=== PATIENT | male | born 1960 | race Caucasian/White ===

== ENCOUNTER 2017-11-14 14:48 | Emergency (ER) | payer MEDICAID, OTHER ==
[2017-11-14 16:11] LABS: #Basophils 0.1 thou/uL (0.0-0.2); #Eosinphils 0.1 thou/uL (0.0-0.7); #Lymphocytes 1.9 thou/uL (1.20-3.40); #Monocytes 1.1 thou/uL (0.11-0.59); %Basophils 0.9 % (0.0-1.0); %Eosinophils 1.3 % (0.0-10.0); %Lymphocytes 18.2 % (21.0-51.0); %Monocytes 10.6 % (0.0-10.0); Hemoglobin 14.3 g/dL (14.0-18.0); Mean Corpuscular HGB CONC 32.2 g/dL (32.0-36.0); Mean Corpuscular Hemoglobin 30.9 pg (27.0-31.0); Mean Corpuscular Volume 95.8 fl (80.0-94.0); Mean Platelet Volume 6.1 fL (7.4-10.4); Platelet Count 301 thou/uL (130-400); RBC Distribution Width 12.3 % (11.5-14.5); Red Blood Cell (RBC) Count 4.63 mill/uL (4.70-6.10); White Blood Cell (WBC) Count 10.2 thou/uL (4.8-10.8)
[2017-11-14 16:20] LABS: ALT (SGPT) 18 U/L (8-55); AST (SGOT) 16 U/L (5-34); Alkaline Phosphatase 79 U/L (40-150); Anion Gap 12 mmol/L (10-20); BUN (Urea Nitrogen) 12 mg/dL (8.4-25.7); Bilirubin, Total 0.5 mg/dL (0.2-1.2); Calc. Creatinine Clearance 0 mL/min (70-130); Calcium 9.6 mg/dL (7.8-10.44); Carbon Dioxide 27 mmol/L (22-29); Chloride 102 mmol/L (98-107); Estimated GFR-MDRD 71; Glucose 101 mg/dL (70-105); Potassium 4.4 mmol/L (3.5-5.1); Sodium 137 mmol/L (136-145)
--- NOTE | 2017-11-14 16:41 | RAD ---
RIGHT HUMERUS TWO VIEWS: History: Sudden onset of redness and swelling. Comparison: None. FINDINGS: There is a fracture of the right humeral neck with anterior displacement and mild impaction. There is full injury of the distal clavicle. Soft tissue edema. There appears to be osteopenia at the radial neck. IMPRESSION: Angulated fracture of the right humeral neck without definite extension into the articular surface. POS: [facility]
--- NOTE | 2017-11-14 16:54 | RAD ---
RIGHT ELBOW TWO VIEWS: History: Pain, redness. FINDINGS: There is abnormal lucency within the olecranon suggesting a fracture. Moderate to large joint effusio n. On the lateral radiograph, abnormal lucency at the radial neck cortex anteriorly. Exam is limited with only two views. IMPRESSION: 1. Findings concerning for a nondisplaced fracture of the olecranon at the olecranon process. 2. Abnormal lucency of the cortex seen on the lateral radiograph suggesting a radial neck fracture. 3. Large joint effusion. POS: [facility]
--- NOTE | 2017-11-14 17:00 | RAD ---
TWO VIEWS RIGHT FOREARM: History: Right forearm swelling and pain. FINDINGS: AP and lateral views were obtained and demonstrate an area of radiolucency involving the proximal por tion of the right ulna extending into the articulating surface at the humeral ulnar articulation. Thi s is compatible with an acute fracture. Degenerative changes seen in the radial carpal joint. IMPRESSION: Proximal intraarticular right ulnar fracture. POS: [facility]
== END 2017-11-14 18:06 | disposition home or self-care (01) ==
LOC: ERS 14:48
DX: S52.034A Nondisplaced fracture of olecranon process with intraarticular extension of right ulna, initial encounter for closed fracture (principal); Z87.891 Personal history of nicotine dependence; W19.XXXA Unspecified fall, initial encounter
CPT/HCPCS: 24675; 36415; 80053; 85025

== ENCOUNTER 2021-03-26 12:33 | Emergency (ER) | payer MEDICAID, OTHER ==
[2021-03-26] MEDS ORDERED: traMADol HCl 50 MG TAB ONE (13:32)
[2021-03-26] MEDS ORDERED: Ketorolac Tromethamine 30 MG/ML VIAL ONE (13:59)
== END 2021-03-26 14:47 | disposition home or self-care (01) ==
LOC: ERS 12:33
DX: S90.511A Abrasion, right ankle, initial encounter (principal); X58.XXXA Exposure to other specified factors, initial encounter
CPT/HCPCS: 96372; J1885

== ENCOUNTER 2022-05-22 12:25 | Inpatient (IN) | payer OTHER ==
[2022-05-22] MEDS ORDERED: Fosphenytoin Sodium 500 mg/10 ml Vial ONE ×2 (13:27→13:32)
[2022-05-22 13:41] LABS: Hemoglobin 17.3 g/dL (14.0-18.0); Mean Corpuscular HGB CONC 32.2 g/dL (32.0-36.0); Mean Corpuscular Hemoglobin 30.4 pg (27.0-31.0); Mean Corpuscular Volume 94.5 fL (78.0-98.0); Mean Platelet Volume 7.6 fL (7.4-10.4); Platelet Count 294 thou/uL (130-400); RBC Distribution Width 12.5 % (11.5-14.5); Red Blood Cell (RBC) Count 5.68 mill/uL (4.70-6.10); White Blood Cell (WBC) Count 22.3 thou/uL (4.8-10.8)
[2022-05-22 13:44] LABS: Bacteria/HPF None Seen HPF (None Seen); Bilirubin Negative (Negative); Blood, Urine 2+ (Negative); Clarity Clear (Clear); Glucose, Urine (Dipstick) 70 mg/dL (Negative); Ketone, Urine 40 mg/dL (Negative); Leukocyte Negative Leu/uL (Negative); Nitrite Negative (Negative); Protein, Urine (Dipstick) 300 mg/dL (Neg-Trace); RBC/HPF 0-3 HPF (0-3); Specific Gravity, Urine 1.021 (1.002-1.036); Squamous Epithelial 0-3 HPF (0-3); Urobilinogen Normal mg/dL (Less than 2); WBC/HPF 0-3 HPF (0-3); pH, Urine 6.5 (5.0-9.0)
[2022-05-22] MEDS ORDERED: Vancomycin 1 GM/200 ML BAG ONE (13:46)
[2022-05-22 14:01] LABS: ALT (SGPT) 23 U/L (8-55); AST (SGOT) 36 U/L (5-34); Albumin 4.2 g/dL (3.4-4.8); Alkaline Phosphatase 88 U/L (40-110); Anion Gap 22 mmol/L (10-20); BUN (Urea Nitrogen) 24 mg/dL (8.4-25.7); Bilirubin, Total 0.6 mg/dL (0.2-1.2); Calc. Creatinine Clearance 0 mL/min (70-130); Carbon Dioxide 18 mmol/L (23-31); Chloride 101 mmol/L (98-107); Estimated GFR 70; Globulin 3.3 g/dL (2.4-3.5); Glucose 149 mg/dL (80-115); Protein, Total 7.5 g/dL (5.8-8.1); Sodium 138 mmol/L (136-145)
[2022-05-22 14:05] LABS: Band 15 % (5-11); Lymphocytes 4 % (21-51); MDiff Complete? YES; Monocytes 11 % (0-10); Neutrophil 70 % (42-75); Platelet Morphology Comment Appears Adequate; RBC Morphology Normal
[2022-05-22 14:20] LABS: Potassium 2.9 mmol/L (3.5-5.1)
[2022-05-22] MEDS ORDERED: EPINEPHrine 1 MG/10 ML Abboject SYRINGE ONE (14:22)
[2022-05-22] MEDS ORDERED: Ketamine 50 MG/ML (10ML VIAL) ONE (14:36)
[2022-05-22] MEDS ORDERED: Rocuronium Bromide 10 MG/ML (10ML VIAL) ONE (14:40)
[2022-05-22 15:11] LABS: CKMB 20.8 ng/mL (0-6.6)
[2022-05-22] MEDS ORDERED: Fentanyl CADD 100 ML IV SCH (15:15)
[2022-05-22 15:23] LABS: Actual Bicarbonate (HCO3a) 14.8 mEq/L (22-28); Analyzer IN Cardio ER; CO2 Tension 30.5 mmHg (35.0-45.0); Calcium, Ionized (arterial) 1.06 mmol/L (1.12-1.30); Carboxyhemoglobin (COHb) 0.3 gm% (0.0-3.0); Hemoglobin (Hb) 15.9 g/dL (14.0-18.0); Potassium - ABG Lab 3.19 mmol/L (3.70-5.30); pH, Arterial 7.31 (7.35-7.45)
[2022-05-22 15:30] LABS: ALV-art Gradient 592.875 mmHg (0-20); Puncture Site LRA
[2022-05-22 15:38] LABS: SARS-CoV-2 NAA Rapid Test Not Detected (NotDetected)
[2022-05-22] MEDS ORDERED: Lorazepam 2 MG/ML VIAL SLOW IVP PRN (15:56)
[2022-05-22] MEDS ORDERED: Ventilator Sedation Protocol 1 EACH FS ONE (15:59)
[2022-05-22] MEDS ORDERED: levETIRAcetam 500 MG/5 ML VIAL SLOW IVP SCH (16:30)
[2022-05-22 16:41] LABS: Amphetamine Not Detected (NotDetected); Barbiturates Screen Detected (NotDetected); Benzodiazepine Screen Not Detected (NotDetected); Cocaine Metabolite Screen Not Detected (NotDetected); Methadone Not Detected (NotDetected); Methamphetamine Not Detected (NotDetected); Opiate Screen Not Detected (NotDetected); Oxycodone Screen Not Detected (NotDetected); Phencyclidine (PCP) Not Detected (NotDetected); THC/Cannabinoid Screen Not Detected (NotDetected); Tricyclic Screen Not Detected (NotDetected)
[2022-05-22 16:54] LABS: Legionella Urinary Ag Negative (Negative); Strep pneumo Urine Ag NEGATIVE (NEGATIVE)
[2022-05-22] MEDS ORDERED: Sodium Chloride 0.9% 500 ML IV SCH (17:00)
[2022-05-22 17:18] LABS: Lactic Acid 5.4 mmol/L (0.5-2.2)
[2022-05-22 17:32] LABS: Troponin I 6.208 ng/mL (< 0.028)
[2022-05-22 17:34] LABS: Acetaminophen Less than 10.0 mcg/mL (10.0-30.0); Alcohol Less than 10 mg/dL (Less than 10); CK (CPK) 546 U/L (30-200); Magnesium 1.6 mg/dL (1.6-2.6); Salicylate Less than 8.0 mg/dL (15.0-30.0)
[2022-05-22] MEDS: Potassium Chloride 20 MEQ in Premix Bag 1 BAG IVPB SCH ×2 (18:48→18:56)
[2022-05-22] MEDS: D5 0.9% NS w/ 20 mEq KCl 1,000 ML IV SCH (19:17)
[2022-05-22] MEDS: Fosphenytoin Sodium 100 MG in Sodium Chloride 0.9% 50 ML IVPB SCH (19:17)
[2022-05-22] MEDS ORDERED: Vancomycin HCl 500 MG in Sodium Chloride 0.9% 100 ML IVPB SCH (19:30)
[2022-05-22] MEDS ORDERED: Electrolyte Replacement Protocol 1 EACH FS ONE (19:33)
[2022-05-22 19:51] LABS: Lactic Acid 7.5 mmol/L (0.5-2.2); Troponin I 8.668 ng/mL (< 0.028)
[2022-05-22 20:09] LABS: Anion Gap 20 mmol/L (10-20); BUN (Urea Nitrogen) 21 mg/dL (8.4-25.7); Calc. Creatinine Clearance 50 mL/min (70-130); Calcium 7.3 mg/dL (7.8-10.44); Carbon Dioxide 14 mmol/L (23-31); Chloride 107 mmol/L (98-107); Estimated GFR 65; Glucose 283 mg/dL (80-115); Potassium 4.2 mmol/L (3.5-5.1); Sodium 137 mmol/L (136-145)
[2022-05-22] MEDS ORDERED: Fosphenytoin Sodium 150 MG in Sodium Chloride 0.9% 50 ML IVPB SCH (21:00)
[2022-05-22] MEDS: metroNIDAZOLE 500 MG in Premix Bag 1 BAG IVPB SCH (22:48)
[2022-05-23] MEDS: Fosphenytoin Sodium 100 MG in Sodium Chloride 0.9% 50 ML IVPB SCH ×4 (01:58→20:56)
[2022-05-23 04:46] LABS: Hemoglobin A1c 5.2 % (4.0-6.0)
[2022-05-23] MEDS: D5 0.9% NS w/ 20 mEq KCl 1,000 ML IV SCH (05:49)
[2022-05-23 07:41] LABS: Actual Bicarbonate (HCO3a) 17.6 mEq/L (22-28); Calcium, Ionized (arterial) 1.08 mmol/L (1.12-1.30); Carboxyhemoglobin (COHb) 0.3 gm% (0.0-3.0); Hemoglobin (Hb) 16.6 g/dL (14.0-18.0); O2 Tension (PaO2), arterial 146.6 mmHg (> 80.0); Potassium - ABG Lab 4.24 mmol/L (3.70-5.30); pH, Arterial 7.46 (7.35-7.45)
[2022-05-23 07:47] LABS: CO2 Tension 25.1 mmHg (35.0-45.0); Puncture Site RRA
[2022-05-23 07:48] LABS: ALV-art Gradient 178.525 mmHg (0-20)
[2022-05-23] MEDS ORDERED: Dextrose 5% in Water 1,000 ML IV PRN (08:04)
[2022-05-23] MEDS ORDERED: Dextrose 50% Abboject 50 ML SYRINGE SLOW IVP PRN (08:04)
[2022-05-23 08:36] LABS: Anion Gap 19 mmol/L (10-20); BUN (Urea Nitrogen) 18 mg/dL (8.4-25.7); Calc. Creatinine Clearance 41 mL/min (70-130); Calcium 7.5 mg/dL (7.8-10.44); Carbon Dioxide 17 mmol/L (23-31); Chloride 110 mmol/L (98-107); Estimated GFR 50; Glucose 263 mg/dL (80-115); Potassium 4.7 mmol/L (3.5-5.1); Sodium 141 mmol/L (136-145)
[2022-05-23] MEDS: Pantoprazole 40 MG VIAL IVP SCH (09:58)
[2022-05-23] MEDS: levETIRAcetam 500 MG/5 ML VIAL SLOW IVP SCH ×2 (09:59→20:56)
[2022-05-23] MEDS: Aspirin Chewable 81 MG TAB PO SCH ×2 (09:59→10:04)
[2022-05-23] MEDS: metroNIDAZOLE 500 MG in Premix Bag 1 BAG IVPB SCH ×2 (10:00→20:56)
[2022-05-23] MEDS: Lactated Ringer's 1,000 ML IV SCH ×2 (10:02→20:56)
[2022-05-23] MEDS ORDERED: Aspirin Chewable 81 MG TAB PO SCH (11:15)
[2022-05-23] MEDS: Insulin Regular 300 UNITS/3 ML VIAL SC PRN (17:56)
[2022-05-23] MEDS: VANCOMYCIN 1.25 GM/250 ML BAG 1.25 GM in Premix Bag 1 BAG IVPB SCH (18:35)
[2022-05-24] MEDS: Fosphenytoin Sodium 100 MG in Sodium Chloride 0.9% 50 ML IVPB SCH ×3 (00:37→12:50)
[2022-05-24 05:15] LABS: Band 19 % (5-11); Hemoglobin 15.7 g/dL (14.0-18.0); Lymphocytes 3 % (21-51); MDiff Complete? YES; Mean Corpuscular HGB CONC 32.8 g/dL (32.0-36.0); Mean Corpuscular Hemoglobin 31.1 pg (27.0-31.0); Mean Corpuscular Volume 94.6 fL (78.0-98.0); Mean Platelet Volume 8.5 fL (7.4-10.4); Monocytes 14 % (0-10); Neutrophil 63 % (42-75); Platelet Count 101 thou/uL (130-400); Platelet Morphology Comment Appears Decreased; RBC Distribution Width 12.6 % (11.5-14.5); RBC Morphology Normal; Reactive Lymphocytes 1 % (0-10); Red Blood Cell (RBC) Count 5.07 mill/uL (4.70-6.10); White Blood Cell (WBC) Count 19.2 thou/uL (4.8-10.8)
[2022-05-24 05:16] LABS: Anion Gap 16 mmol/L (10-20); BUN (Urea Nitrogen) 14 mg/dL (8.4-25.7); CK (CPK) 3469 U/L (30-200); Calc. Creatinine Clearance 47 mL/min (70-130); Carbon Dioxide 21 mmol/L (23-31); Chloride 105 mmol/L (98-107); Estimated GFR 57; Glucose 154 mg/dL (80-115); Potassium 3.8 mmol/L (3.5-5.1); Sodium 138 mmol/L (136-145)
[2022-05-24] MEDS: Insulin Regular 300 UNITS/3 ML VIAL SC PRN ×4 (06:16→21:23)
[2022-05-24 07:46] LABS: Actual Bicarbonate (HCO3a) 19.7 mEq/L (22-28); Base Excess (BEa) -0.5 mEq/L (-2.0 to +3.0); Calcium, Ionized (arterial) 1.07 mmol/L (1.12-1.30); Carboxyhemoglobin (COHb) 0.6 gm% (0.0-3.0); Hemoglobin (Hb) 15.8 g/dL (14.0-18.0); O2 Tension (PaO2), arterial 87.8 mmHg (> 80.0); Potassium - ABG Lab 3.59 mmol/L (3.70-5.30)
[2022-05-24 07:58] LABS: ALV-art Gradient 168.275 mmHg (0-20); CO2 Tension 23.3 mmHg (35.0-45.0); Puncture Site LRA; pH, Arterial 7.55 (7.35-7.45)
[2022-05-24] MEDS ORDERED: Aspirin Chewable 81 MG TAB PO SCH ×2 (09:00→10:45)
[2022-05-24] MEDS: Acetaminophen 650 MG/20.3 ML UDCUP PER TUBE PRN ×2 (09:43→15:54)
[2022-05-24] MEDS: Pantoprazole 40 MG VIAL IVP SCH (09:44)
[2022-05-24] MEDS: metroNIDAZOLE 500 MG in Premix Bag 1 BAG IVPB SCH ×2 (09:45→20:41)
[2022-05-24] MEDS: levETIRAcetam 500 MG/5 ML VIAL SLOW IVP SCH ×2 (09:45→20:40)
[2022-05-24] MEDS: Lactated Ringer's 1,000 ML IV SCH (10:01)
[2022-05-24] MEDS: Cefepime 1 GM in Sodium Chloride 0.9% 100 ML IVPB SCH ×2 (12:04→23:56)
[2022-05-24 17:33] LABS: Vancomycin, Trough 7.9 ug/mL
[2022-05-24] MEDS: VANCOMYCIN 1.25 GM/250 ML BAG 1.25 GM in Premix Bag 1 BAG IVPB SCH (18:51)
[2022-05-24] MEDS: Vancomycin HCl 750 MG in Sodium Chloride 0.9% 250 ML 250 ML IVPB SCH (20:00)
[2022-05-24] MEDS: Lisinopril 5 MG TAB PO SCH (20:40)
[2022-05-24] MEDS: Heparin 5,000 UNITS/ML VIAL SC SCH (20:40)
[2022-05-25] MEDS: Lactated Ringer's 1,000 ML IV SCH
[2022-05-25] MEDS: Acetaminophen 650 MG/20.3 ML UDCUP PER TUBE PRN ×2 (00:07→20:28)
[2022-05-25] MEDS: Fosphenytoin Sodium 200 MG in Sodium Chloride 0.9% 50 ML IVPB SCH ×2 (01:02→13:11)
[2022-05-25] MEDS: Vancomycin HCl 750 MG in Sodium Chloride 0.9% 250 ML 250 ML IVPB SCH ×2 (06:43→18:30)
[2022-05-25 07:53] LABS: Actual Bicarbonate (HCO3a) 19.2 mEq/L (22-28); Calcium, Ionized (arterial) 1.08 mmol/L (1.12-1.30); Carboxyhemoglobin (COHb) 0.2 gm% (0.0-3.0); Hemoglobin (Hb) 14.2 g/dL (14.0-18.0); O2 Tension (PaO2), arterial 92.5 mmHg (> 80.0); Potassium - ABG Lab 3.41 mmol/L (3.70-5.30); pH, Arterial 7.51 (7.35-7.45)
[2022-05-25 08:04] LABS: CO2 Tension 24.6 mmHg (35.0-45.0); Puncture Site RB
[2022-05-25] MEDS ORDERED: Aspirin Chewable 81 MG TAB PO SCH (09:00)
[2022-05-25 09:21] LABS: ALT (SGPT) 74 U/L (8-55); AST (SGOT) 243 U/L (5-34); Albumin 2.4 g/dL (3.4-4.8); Alkaline Phosphatase 39 U/L (40-110); Anion Gap 14 mmol/L (10-20); BUN (Urea Nitrogen) 20 mg/dL (8.4-25.7); Bilirubin, Total 0.4 mg/dL (0.2-1.2); Calc. Creatinine Clearance 43 mL/min (70-130); Calcium 7.5 mg/dL (7.8-10.44); Carbon Dioxide 19 mmol/L (23-31); Chloride 109 mmol/L (98-107); Estimated GFR 50; Globulin 2.4 g/dL (2.4-3.5); Glucose 174 mg/dL (80-115); Magnesium 1.5 mg/dL (1.6-2.6); Potassium 3.6 mmol/L (3.5-5.1); Protein, Total 4.8 g/dL (5.8-8.1); Sodium 138 mmol/L (136-145)
[2022-05-25] MEDS: Carvedilol 3.125 MG TAB PO SCH ×2 (09:36→17:29)
[2022-05-25] MEDS: Lisinopril 5 MG TAB PO SCH ×2 (09:37→20:26)
[2022-05-25] MEDS: levETIRAcetam 500 MG/5 ML VIAL SLOW IVP SCH ×2 (09:37→20:25)
[2022-05-25] MEDS: Pantoprazole 40 MG VIAL IVP SCH (09:37)
[2022-05-25] MEDS: Heparin 5,000 UNITS/ML VIAL SC SCH ×2 (09:43→20:25)
[2022-05-25] MEDS: metroNIDAZOLE 500 MG in Premix Bag 1 BAG IVPB SCH ×2 (09:50→20:28)
[2022-05-25 09:52] LABS: Band 17 % (5-11); Hemoglobin 13.7 g/dL (14.0-18.0); Lymphocytes 5 % (21-51); MDiff Complete? YES; Mean Corpuscular HGB CONC 32.5 g/dL (32.0-36.0); Mean Corpuscular Hemoglobin 30.8 pg (27.0-31.0); Mean Corpuscular Volume 94.9 fL (78.0-98.0); Mean Platelet Volume 9.2 fL (7.4-10.4); Monocytes 2 % (0-10); Neutrophil 76 % (42-75); Platelet Count 89 thou/uL (130-400); Platelet Morphology Comment Appears Decreased; RBC Distribution Width 12.3 % (11.5-14.5); RBC Morphology Normal; Red Blood Cell (RBC) Count 4.44 mill/uL (4.70-6.10); White Blood Cell (WBC) Count 17.3 thou/uL (4.8-10.8)
[2022-05-25] MEDS: Insulin Regular 300 UNITS/3 ML VIAL SC PRN ×3 (10:45→21:28)
[2022-05-25] MEDS: Cefepime 1 GM in Sodium Chloride 0.9% 100 ML IVPB SCH ×2 (11:37→23:23)
[2022-05-25] MEDS ORDERED: Electrolyte Replacement Protocol 1 EACH FS SCH (11:45)
[2022-05-25] MEDS ORDERED: Electrolyte Replacement Protocol FS PRN (12:00)
[2022-05-25] MEDS ORDERED: Magnesium 2 GM/50 ML(in water) 2 GM in Premix Bag 1 BAG IVPB SCH (12:00)
[2022-05-26] MEDS: Fosphenytoin Sodium 200 MG in Sodium Chloride 0.9% 50 ML IVPB SCH ×2 (00:57→12:45)
[2022-05-26 04:06] LABS: Band 16 % (5-11); Hemoglobin 12.9 g/dL (14.0-18.0); Hypochromia SLIGHT = 6-15 cells (100X) (0-5/hpf); Lymphocytes 5 % (21-51); MDiff Complete? YES; Mean Corpuscular HGB CONC 32.9 g/dL (32.0-36.0); Mean Corpuscular Hemoglobin 31.4 pg (27.0-31.0); Mean Corpuscular Volume 95.5 fL (78.0-98.0); Mean Platelet Volume 10.1 fL (7.4-10.4); Monocytes 13 % (0-10); Neutrophil 66 % (42-75); Platelet Count 107 thou/uL (130-400); Platelet Morphology Comment Appears Decreased; RBC Distribution Width 12.4 % (11.5-14.5); Red Blood Cell (RBC) Count 4.09 mill/uL (4.70-6.10); White Blood Cell (WBC) Count 18.6 thou/uL (4.8-10.8)
[2022-05-26 04:11] LABS: ALT (SGPT) 78 U/L (8-55); AST (SGOT) 232 U/L (5-34); Albumin 2.2 g/dL (3.4-4.8); Alkaline Phosphatase 45 U/L (40-110); Anion Gap 13 mmol/L (10-20); BUN (Urea Nitrogen) 29 mg/dL (8.4-25.7); Bilirubin, Total 0.3 mg/dL (0.2-1.2); Calc. Creatinine Clearance 33 mL/min (70-130); Calcium 7.5 mg/dL (7.8-10.44); Carbon Dioxide 18 mmol/L (23-31); Chloride 109 mmol/L (98-107); Estimated GFR 37; Globulin 2.6 g/dL (2.4-3.5); Glucose 173 mg/dL (80-115); Magnesium 2.3 mg/dL (1.6-2.6); Potassium 3.4 mmol/L (3.5-5.1); Protein, Total 4.8 g/dL (5.8-8.1); Sodium 137 mmol/L (136-145)
[2022-05-26] MEDS: Insulin Regular 300 UNITS/3 ML VIAL SC PRN ×4 (04:26→22:12)
[2022-05-26 06:43] LABS: Vancomycin, Trough 22.2 ug/mL
[2022-05-26] MEDS ORDERED: VANCOMYCIN 1.25 GM/250 ML BAG 1.25 GM in Premix Bag 1 BAG IVPB SCH (08:00)
[2022-05-26] MEDS: metroNIDAZOLE 500 MG in Premix Bag 1 BAG IVPB SCH ×2 (08:23→21:49)
[2022-05-26] MEDS: Potassium Chloride 20 MEQ in Premix Bag 1 BAG IVPB SCH ×2 (08:23→10:37)
[2022-05-26] MEDS: Heparin 5,000 UNITS/ML VIAL SC SCH ×2 (08:24→21:53)
[2022-05-26] MEDS: Pantoprazole 40 MG VIAL IVP SCH (08:25)
[2022-05-26] MEDS: levETIRAcetam 500 MG/5 ML VIAL SLOW IVP SCH ×2 (08:25→21:49)
[2022-05-26] MEDS: Lisinopril 5 MG TAB PO SCH (08:25)
[2022-05-26] MEDS: Carvedilol 3.125 MG TAB PO SCH ×2 (08:25→16:34)
[2022-05-26] MEDS: Aspirin Chewable 81 MG TAB PO SCH (08:26)
[2022-05-26] MEDS: Cefepime 1 GM in Sodium Chloride 0.9% 100 ML IVPB SCH ×2 (10:37→23:22)
[2022-05-26 12:07] LABS: Actual Bicarbonate (HCO3v) 20 mEq/L (22-28); Base Excess -2.3 mEq/L (-2.0 to +3.0); Calcium, Ionized (venous) 1.02 mmol/L (1.16-1.32); Chloride (VBG) 108 mmol/L (98-106); Hemoglobin (Hb) 13.9 g/dL (13.1-17.2); Potassium (VBG) 4.05 mmol/L (3.70-5.30); Sodium 133.8 mmol/L (133-146); pH (venous) 7.48 (7.32-7.43)
[2022-05-27] MEDS: Fosphenytoin Sodium 200 MG in Sodium Chloride 0.9% 50 ML IVPB SCH ×2 (01:08→13:49)
[2022-05-27] MEDS: Acetaminophen 650 MG/20.3 ML UDCUP PER TUBE PRN ×2 (01:09→21:25)
[2022-05-27 04:05] LABS: ALT (SGPT) 89 U/L (8-55); AST (SGOT) 238 U/L (5-34); Albumin 2.3 g/dL (3.4-4.8); Alkaline Phosphatase 58 U/L (40-110); Anion Gap 14 mmol/L (10-20); BUN (Urea Nitrogen) 45 mg/dL (8.4-25.7); Bilirubin, Total 0.3 mg/dL (0.2-1.2); Calc. Creatinine Clearance 28 mL/min (70-130); Calcium 7.7 mg/dL (7.8-10.44); Carbon Dioxide 18 mmol/L (23-31); Chloride 109 mmol/L (98-107); Estimated GFR 28; Globulin 2.9 g/dL (2.4-3.5); Glucose 237 mg/dL (80-115); Magnesium 2.4 mg/dL (1.6-2.6); Potassium 4.2 mmol/L (3.5-5.1); Protein, Total 5.2 g/dL (5.8-8.1); Sodium 137 mmol/L (136-145)
[2022-05-27] MEDS: Insulin Regular 300 UNITS/3 ML VIAL SC PRN ×3 (04:13→22:15)
[2022-05-27 04:15] LABS: Band 8 % (5-11); Hemoglobin 13.7 g/dL (14.0-18.0); Lymphocytes 9 % (21-51); MDiff Complete? YES; Mean Corpuscular HGB CONC 32.8 g/dL (32.0-36.0); Mean Corpuscular Hemoglobin 31.1 pg (27.0-31.0); Mean Corpuscular Volume 94.9 fL (78.0-98.0); Mean Platelet Volume 9.5 fL (7.4-10.4); Monocytes 5 % (0-10); Neutrophil 78 % (42-75); Platelet Count 143 thou/uL (130-400); Platelet Morphology Comment Appears Adequate; RBC Distribution Width 12.5 % (11.5-14.5); RBC Morphology Normal; Red Blood Cell (RBC) Count 4.41 mill/uL (4.70-6.10); White Blood Cell (WBC) Count 17.4 thou/uL (4.8-10.8)
[2022-05-27] MEDS ORDERED: ADMIXTURE FEE IVPB SCH (07:30)
[2022-05-27] MEDS ORDERED: VANCOMYCIN IVPB SCH (07:30)
[2022-05-27 08:40] LABS: Vancomycin, Random 27.4 ug/mL (See Comment)
[2022-05-27] MEDS ORDERED: Carvedilol 3.125 MG TAB PO SCH (08:45)
[2022-05-27] MEDS: Heparin 5,000 UNITS/ML VIAL SC SCH ×2 (09:00→21:30)
[2022-05-27] MEDS: levETIRAcetam 500 MG/5 ML VIAL SLOW IVP SCH ×2 (09:00→21:27)
[2022-05-27] MEDS: metroNIDAZOLE 500 MG in Premix Bag 1 BAG IVPB SCH ×2 (09:00→16:03)
[2022-05-27] MEDS: Aspirin Chewable 81 MG TAB PO SCH (09:01)
[2022-05-27] MEDS: Pantoprazole 40 MG VIAL IVP SCH (09:02)
[2022-05-27] MEDS ORDERED: Midazolam HCl 2 mg/2 ml Vial ONE (12:11)
[2022-05-27] MEDS ORDERED: Midazolam HCl 2 mg/2 ml Vial SLOW IVP PRN (12:37)
[2022-05-27] MEDS: Carvedilol 3.125 MG TAB PO SCH ×2 (13:23→16:23)
[2022-05-27] MEDS ORDERED: Sodium Chloride 3% 50 ML IVPB SCH (13:30)
[2022-05-27] MEDS ORDERED: Cefepime 1 GM in Sodium Chloride 0.9% 100 ML IVPB SCH (23:00)
[2022-05-28] MEDS: Fosphenytoin Sodium 200 MG in Sodium Chloride 0.9% 50 ML IVPB SCH ×2 (01:26→15:21)
[2022-05-28 04:30] LABS: Hemoglobin 12.5 g/dL (14.0-18.0); Mean Corpuscular HGB CONC 31.9 g/dL (32.0-36.0); Mean Corpuscular Hemoglobin 30.4 pg (27.0-31.0); Mean Corpuscular Volume 95.4 fL (78.0-98.0); Mean Platelet Volume 10.2 fL (7.4-10.4); Platelet Count 157 thou/uL (130-400); RBC Distribution Width 12.7 % (11.5-14.5); Red Blood Cell (RBC) Count 4.12 mill/uL (4.70-6.10); White Blood Cell (WBC) Count 15.2 thou/uL (4.8-10.8)
[2022-05-28 04:35] LABS: Vancomycin, Random 21.9 ug/mL (See Comment)
[2022-05-28 04:36] LABS: ALT (SGPT) 91 U/L (8-55); AST (SGOT) 197 U/L (5-34); Albumin 2.3 g/dL (3.4-4.8); Alkaline Phosphatase 63 U/L (40-110); Anion Gap 16 mmol/L (10-20); BUN (Urea Nitrogen) 61 mg/dL (8.4-25.7); Bilirubin, Total 0.2 mg/dL (0.2-1.2); Calc. Creatinine Clearance 22 mL/min (70-130); Calcium 7.6 mg/dL (7.8-10.44); Carbon Dioxide 17 mmol/L (23-31); Chloride 109 mmol/L (98-107); Estimated GFR 21; Globulin 2.8 g/dL (2.4-3.5); Glucose 234 mg/dL (80-115); Magnesium 2.4 mg/dL (1.6-2.6); Potassium 4.9 mmol/L (3.5-5.1); Protein, Total 5.1 g/dL (5.8-8.1); Sodium 137 mmol/L (136-145)
[2022-05-28] MEDS: Insulin Regular 300 UNITS/3 ML VIAL SC PRN ×4 (04:40→23:12)
[2022-05-28 05:38] LABS: Band 9 % (5-11); Eosinophils 3 % (0-10); Lymphocytes 9 % (21-51); MDiff Complete? YES; Monocytes 11 % (0-10); Neutrophil 68 % (42-75)
[2022-05-28 06:58] LABS: Actual Bicarbonate (HCO3a) 17.3 mEq/L (22-28); Calcium, Ionized (arterial) 1.12 mmol/L (1.12-1.30); Carboxyhemoglobin (COHb) 0.3 gm% (0.0-3.0); Hemoglobin (Hb) 14.2 g/dL (14.0-18.0); O2 Tension (PaO2), arterial 104.9 mmHg (> 80.0); Potassium - ABG Lab 4.75 mmol/L (3.70-5.30); pH, Arterial 7.44 (7.35-7.45)
[2022-05-28 06:59] LABS: CO2 Tension 25.8 mmHg (35.0-45.0)
[2022-05-28 07:00] LABS: Puncture Site RRA
[2022-05-28] MEDS ORDERED: Furosemide 40 MG/4 ML VIAL SLOW IVP SCH (09:30)
[2022-05-28] MEDS ORDERED: Meropenem 1 GM in Sodium Chloride 0.9% 100 ML IVPB SCH ×3 (09:45→14:00)
[2022-05-28] MEDS: levETIRAcetam 500 MG/5 ML VIAL SLOW IVP SCH ×2 (09:49→22:04)
[2022-05-28] MEDS: Pantoprazole 40 MG VIAL IVP SCH (09:49)
[2022-05-28] MEDS: metroNIDAZOLE 500 MG in Premix Bag 1 BAG IVPB SCH ×2 (09:51)
[2022-05-28] MEDS: Carvedilol 3.125 MG TAB PO SCH ×2 (09:52→17:46)
[2022-05-28] MEDS: Heparin 5,000 UNITS/ML VIAL SC SCH ×2 (09:53→22:05)
[2022-05-28] MEDS: Aspirin Chewable 81 MG TAB PO SCH (09:53)
[2022-05-28] MEDS ORDERED: Fentanyl CADD 100 ML IV PRN (16:10)
[2022-05-28] MEDS: Meropenem 500 MG in Sodium Chloride 0.9% 100 ML IVPB SCH (18:06)
[2022-05-28] MEDS: Senokot S 8.6-50 MG TAB PO SCH (22:05)
[2022-05-29] MEDS: Fosphenytoin Sodium 200 MG in Sodium Chloride 0.9% 50 ML IVPB SCH ×2 (00:51→13:01)
[2022-05-29] MEDS: Insulin Regular 300 UNITS/3 ML VIAL SC PRN ×4 (04:32→22:55)
[2022-05-29] MEDS: Meropenem 500 MG in Sodium Chloride 0.9% 100 ML IVPB SCH ×2 (06:29→17:50)
[2022-05-29 06:59] LABS: #Eosinphils 0.2 thou/uL (0.0-0.7); #Lymphocytes 1.3 thou/uL (1.20-3.40); #Monocytes 1.3 thou/uL (0.11-0.59); #Neutrophils 12.5 thou/uL (1.40-6.50); %Basophils 0.1 % (0.0-1.0); %Eosinophils 1.5 % (0.0-10.0); %Lymphocytes 8.7 % (21.0-51.0); %Monocytes 8.3 % (0.0-10.0); %Neutrophils 81.5 % (42.0-75.0); Hemoglobin 13.3 g/dL (14.0-18.0); Mean Corpuscular HGB CONC 30.9 g/dL (32.0-36.0); Mean Corpuscular Volume 97.2 fL (78.0-98.0); Mean Platelet Volume 9.4 fL (7.4-10.4); Platelet Count 199 thou/uL (130-400); RBC Distribution Width 12.9 % (11.5-14.5); Red Blood Cell (RBC) Count 4.45 mill/uL (4.70-6.10); White Blood Cell (WBC) Count 15.3 thou/uL (4.8-10.8)
[2022-05-29 07:18] LABS: ALT (SGPT) 86 U/L (8-55); AST (SGOT) 203 U/L (5-34); Albumin 2.2 g/dL (3.4-4.8); Alkaline Phosphatase 65 U/L (40-110); Anion Gap 16 mmol/L (10-20); BUN (Urea Nitrogen) 84 mg/dL (8.4-25.7); Bilirubin, Total 0.2 mg/dL (0.2-1.2); Calc. Creatinine Clearance 18 mL/min (70-130); Calcium 7.5 mg/dL (7.8-10.44); Carbon Dioxide 16 mmol/L (23-31); Cardiac Risk 4.4 (Less than 4.5); Chloride 106 mmol/L (98-107); Cholesterol 97 mg/dl (< 200 Desired); Estimated GFR 15; Globulin 3.2 g/dL (2.4-3.5); Glucose 186 mg/dL (80-115); HDL Cholesterol 22 mg/dL (>60 Neg Risk); LDL Cholesterol, Calculated 47 mg/dL; Magnesium 2.4 mg/dL (1.6-2.6); Potassium 6.3 mmol/L (3.5-5.1); Protein, Total 5.4 g/dL (5.8-8.1); Sodium 132 mmol/L (136-145); Triglycerides 141 mg/dL (Less than 150)
[2022-05-29] MEDS: levETIRAcetam 500 MG/5 ML VIAL SLOW IVP SCH ×2 (09:28→21:16)
[2022-05-29] MEDS: Pantoprazole 40 MG VIAL IVP SCH (09:28)
[2022-05-29] MEDS: Polyethylene Glycol 3350 17 GM Packet PER TUBE SCH (09:28)
[2022-05-29] MEDS: Heparin 5,000 UNITS/ML VIAL SC SCH ×2 (09:29→21:16)
[2022-05-29] MEDS: Aspirin Chewable 81 MG TAB PO SCH (09:29)
[2022-05-29] MEDS: Senokot S 8.6-50 MG TAB PO SCH ×2 (09:29→21:16)
[2022-05-29] MEDS: Carvedilol 3.125 MG TAB PO SCH ×2 (09:29→16:34)
[2022-05-29] MEDS: Furosemide 40 MG/4 ML VIAL SLOW IVP SCH ×2 (09:30→21:16)
[2022-05-29] MEDS ORDERED: Midazolam HCl 2 mg/2 ml Vial SLOW IVP PRN (15:46)
[2022-05-29] MEDS ORDERED: Fentanyl BOLUS 250 ML IVPB PRN (16:00)
[2022-05-29] MEDS ORDERED: DISCONTINUE PREVIOUS NARCOTIC PAIN MEDICATIONS AND BENZODIAZEPINES FS SCH (16:00)
[2022-05-29] MEDS ORDERED: Morphine 4 MG/ML VIAL SLOW IVP PRN (16:00)
[2022-05-29] MEDS ORDERED: Propofol BOLUS 1,000 MG/100 ML VIAL IV PRN (16:00)
[2022-05-29] MEDS ORDERED: Propofol 1,000 MG/100 ML VIAL IV PRN (16:00)
[2022-05-29] MEDS ORDERED: Fentanyl CADD 100 ML IV SCH (16:00)
[2022-05-29] MEDS ORDERED: Insulin Glargine 30 UNITS/0.3 ML VIAL SC SCH (17:45)
[2022-05-30] MEDS ORDERED: Fentanyl CADD 100 ML ONE ×2 (01:13→21:45)
[2022-05-30] MEDS: Fosphenytoin Sodium 200 MG in Sodium Chloride 0.9% 50 ML IVPB SCH ×2 (01:26→14:36)
[2022-05-30 04:10] LABS: #Eosinphils 0.2 thou/uL (0.0-0.7); #Lymphocytes 1.1 thou/uL (1.20-3.40); #Monocytes 1.2 thou/uL (0.11-0.59); #Neutrophils 13.6 thou/uL (1.40-6.50); %Basophils 0.1 % (0.0-1.0); %Eosinophils 1.4 % (0.0-10.0); %Lymphocytes 6.8 % (21.0-51.0); %Monocytes 7.1 % (0.0-10.0); %Neutrophils 84.7 % (42.0-75.0); Hemoglobin 12.4 g/dL (14.0-18.0); Mean Corpuscular HGB CONC 33.1 g/dL (32.0-36.0); Mean Corpuscular Hemoglobin 31.4 pg (27.0-31.0); Mean Corpuscular Volume 94.9 fL (78.0-98.0); Mean Platelet Volume 8.5 fL (7.4-10.4); Platelet Count 344 thou/uL (130-400); RBC Distribution Width 12.8 % (11.5-14.5); Red Blood Cell (RBC) Count 3.94 mill/uL (4.70-6.10); White Blood Cell (WBC) Count 16.1 thou/uL (4.8-10.8)
[2022-05-30 04:34] LABS: ALT (SGPT) 82 U/L (8-55); AST (SGOT) 162 U/L (5-34); Albumin 2.2 g/dL (3.4-4.8); Alkaline Phosphatase 73 U/L (40-110); Anion Gap 18 mmol/L (10-20); BUN (Urea Nitrogen) 103 mg/dL (8.4-25.7); Bilirubin, Total 0.2 mg/dL (0.2-1.2); Calc. Creatinine Clearance 15 mL/min (70-130); Carbon Dioxide 17 mmol/L (23-31); Chloride 106 mmol/L (98-107); Estimated GFR 12; Globulin 3.5 g/dL (2.4-3.5); Glucose 248 mg/dL (80-115); Magnesium 2.4 mg/dL (1.6-2.6); Protein, Total 5.7 g/dL (5.8-8.1); Sodium 134 mmol/L (136-145)
[2022-05-30] MEDS ORDERED: Calcium Chloride 1 GM/10 ML Abboject SYRINGE IVP SCH ×6 (05:15→11:40)
[2022-05-30] MEDS ORDERED: Dextrose 50% Abboject 50 ML SYRINGE SLOW IVP SCH ×2 (05:15→07:45)
[2022-05-30] MEDS ORDERED: Insulin Regular 300 UNITS/3 ML VIAL IVP SCH ×3 (05:30→11:30)
[2022-05-30] MEDS: Meropenem 500 MG in Sodium Chloride 0.9% 100 ML IVPB SCH ×2 (06:07→18:49)
[2022-05-30 07:08] LABS: Potassium 6.5 mmol/L (3.5-5.1)
[2022-05-30] MEDS ORDERED: Heparin 10,000 UNITS/ 10 ML VIAL ONE (08:21)
[2022-05-30] MEDS: Furosemide 40 MG/4 ML VIAL SLOW IVP SCH (09:22)
[2022-05-30] MEDS: Polyethylene Glycol 3350 17 GM Packet PER TUBE SCH (09:22)
[2022-05-30] MEDS: Senokot S 8.6-50 MG TAB PO SCH ×2 (09:22→21:59)
[2022-05-30] MEDS: Pantoprazole 40 MG VIAL IVP SCH (09:22)
[2022-05-30] MEDS: levETIRAcetam 500 MG/5 ML VIAL SLOW IVP SCH ×2 (09:22→21:54)
[2022-05-30] MEDS: Heparin 5,000 UNITS/ML VIAL SC SCH ×2 (09:22→22:10)
[2022-05-30] MEDS: Aspirin Chewable 81 MG TAB PO SCH (09:23)
[2022-05-30] MEDS: Carvedilol 3.125 MG TAB PO SCH ×2 (09:23→18:49)
[2022-05-30 10:53] LABS: Potassium 6.4 mmol/L (3.5-5.1)
[2022-05-30] MEDS: Insulin Regular 300 UNITS/3 ML VIAL SC PRN ×2 (10:58→16:09)
[2022-05-30 13:33] LABS: Potassium 6.5 mmol/L (3.5-5.1)
[2022-05-30] MEDS ORDERED: LOKELMA 10 GM PACKET PO SCH (14:00)
[2022-05-30] MEDS: Sodium Bicarbonate 150 MEQ in Dextrose 5% in Water 1,000 ML IV SCH (14:27)
[2022-05-30 14:53] LABS: Actual Bicarbonate (HCO3a) 19.7 mEq/L (22-28); Base Excess (BEa) -4.3 mEq/L (-2.0 to +3.0); CO2 Tension 33.6 mmHg (35.0-45.0); Calcium, Ionized (arterial) 1.63 mmol/L (1.12-1.30); Carboxyhemoglobin (COHb) 0.4 gm% (0.0-3.0); Hemoglobin (Hb) 14.8 g/dL (14.0-18.0); O2 Tension (PaO2), arterial 103.4 mmHg (> 80.0); Potassium - ABG Lab 6.25 mmol/L (3.70-5.30); pH, Arterial 7.39 (7.35-7.45)
[2022-05-30] MEDS: Albumin 25% 25 GM/100 ML BOT IVPB SCH ×2 (16:12→22:24)
[2022-05-30 16:37] LABS: Vancomycin, Random 14.9 ug/mL (See Comment)
[2022-05-30 16:58] LABS: Albumin 2.1 g/dL (3.4-4.8); Anion Gap 15 mmol/L (10-20); BUN (Urea Nitrogen) 108 mg/dL (8.4-25.7); BUN/Creatinine Ratio 20.38; CK (CPK) 3797 U/L (30-200); Calc. Creatinine Clearance 15 mL/min (70-130); Calcium 11.1 mg/dL (7.8-10.44); Carbon Dioxide 19 mmol/L (23-31); Chloride 107 mmol/L (98-107); Estimated GFR 12; Glucose 189 mg/dL (80-115); Phosphorus 6.2 mg/dL (2.3-4.7); Potassium 6.4 mmol/L (3.5-5.1); Sodium 135 mmol/L (136-145)
[2022-05-30 18:58] LABS: HBSAB Concentration Less than 8.00 mIU/mL; HBSAg Index 0.26 S/CO (0-0.99); Hep B Surf AB Non-Reactive (NonReactive); Hep B Surf Ag Non-Reactive S/CO (NonReactive)
[2022-05-30 19:02] LABS: Hep C Index 13.21 S/CO (0-0.79)
[2022-05-30 20:09] LABS: Hep B Core Total Index 6.51 S/CO (0-0.79)
[2022-05-30 20:10] LABS: Hep C IgG Ab Reflex HepC Qnt (NonReactive)
[2022-05-30 21:07] LABS: Hep B Core Total Ab Reactive (NonReactive)
[2022-05-30] MEDS: Insulin Glargine 30 UNITS/0.3 ML VIAL SC SCH (22:00)
[2022-05-31] MEDS: Fosphenytoin Sodium 200 MG in Sodium Chloride 0.9% 50 ML IVPB SCH (01:33)
[2022-05-31] MEDS: Sodium Bicarbonate 150 MEQ in Dextrose 5% in Water 1,000 ML IV SCH (02:07)
[2022-05-31 02:50] LABS: Bacteria/HPF 3+ HPF (None Seen); Bilirubin Negative (Negative); Blood, Urine 3+ (Negative); Clarity Extra Turbid (Clear); Glucose, Urine (Dipstick) Normal (Negative); Ketone, Urine Negative (Negative); Leukocyte 250 Leu/uL (Negative); Nitrite Negative (Negative); Protein, Urine (Dipstick) 100 mg/dL (Neg-Trace); RBC/HPF 21-50 HPF (0-3); Specific Gravity, Urine 1.018 (1.002-1.036); Urobilinogen Normal mg/dL (Less than 2); WBC/HPF Greater than 50 HPF (0-3); Yeast-Budding 2+ HPF (None Seen); pH, Urine 5.5 (5.0-9.0)
[2022-05-31 02:59] LABS: Urine Culture Reflex No No
[2022-05-31 03:18] LABS: Creatinine, Urine 109.41 mg/dL (63-166)
[2022-05-31] MEDS: Albumin 25% 25 GM/100 ML BOT IVPB SCH ×3 (04:13→17:07)
[2022-05-31] MEDS: Insulin Regular 300 UNITS/3 ML VIAL SC PRN (05:07)
[2022-05-31 05:10] LABS: #Eosinphils 0.3 thou/uL (0.0-0.7); #Lymphocytes 1.3 thou/uL (1.20-3.40); #Monocytes 0.9 thou/uL (0.11-0.59); %Basophils 0.1 % (0.0-1.0); %Lymphocytes 9.3 % (21.0-51.0); %Monocytes 6.1 % (0.0-10.0); %Neutrophils 82.6 % (42.0-75.0); Hemoglobin 10.6 g/dL (14.0-18.0); Mean Corpuscular HGB CONC 32.2 g/dL (32.0-36.0); Mean Corpuscular Hemoglobin 30.5 pg (27.0-31.0); Mean Corpuscular Volume 94.6 fL (78.0-98.0); Platelet Count 361 thou/uL (130-400); RBC Distribution Width 12.6 % (11.5-14.5); Red Blood Cell (RBC) Count 3.48 mill/uL (4.70-6.10); White Blood Cell (WBC) Count 14.5 thou/uL (4.8-10.8)
[2022-05-31 05:38] LABS: ALT (SGPT) 64 U/L (8-55); AST (SGOT) 117 U/L (5-34); Albumin 2.3 g/dL (3.4-4.8); Alkaline Phosphatase 69 U/L (40-110); Anion Gap 17 mmol/L (10-20); BUN (Urea Nitrogen) 76 mg/dL (8.4-25.7); Bilirubin, Total 0.3 mg/dL (0.2-1.2); Calc. Creatinine Clearance 19 mL/min (70-130); Carbon Dioxide 26 mmol/L (23-31); Chloride 100 mmol/L (98-107); Estimated GFR 15; Globulin 2.7 g/dL (2.4-3.5); Glucose 165 mg/dL (80-115); Magnesium 2.1 mg/dL (1.6-2.6); Potassium 4.9 mmol/L (3.5-5.1); Sodium 138 mmol/L (136-145)
[2022-05-31] MEDS: Meropenem 500 MG in Sodium Chloride 0.9% 100 ML IVPB SCH ×2 (07:13→16:15)
[2022-05-31] MEDS ORDERED: Heparin 10,000 UNITS/ 10 ML VIAL ONE (08:30)
[2022-05-31] MEDS: Carvedilol 3.125 MG TAB PO SCH ×2 (09:21→16:14)
[2022-05-31] MEDS: Aspirin Chewable 81 MG TAB PO SCH (09:21)
[2022-05-31] MEDS: Senokot S 8.6-50 MG TAB PO SCH ×2 (09:22→22:02)
[2022-05-31] MEDS: Pantoprazole 40 MG VIAL IVP SCH (09:22)
[2022-05-31] MEDS: Polyethylene Glycol 3350 17 GM Packet PER TUBE SCH (09:22)
[2022-05-31] MEDS: Heparin 5,000 UNITS/ML VIAL SC SCH ×2 (09:22→22:04)
[2022-05-31] MEDS: levETIRAcetam 500 MG/5 ML VIAL SLOW IVP SCH ×2 (09:22→22:02)
[2022-05-31] MEDS: Insulin Glargine 30 UNITS/0.3 ML VIAL SC SCH (22:03)
[2022-06-01] MEDS: Albumin 25% 25 GM/100 ML BOT IVPB SCH ×3 (01:58→11:52)
[2022-06-01 04:26] LABS: #Eosinphils 0.2 thou/uL (0.0-0.7); #Lymphocytes 1.2 thou/uL (1.20-3.40); #Monocytes 0.9 thou/uL (0.11-0.59); #Neutrophils 9.2 thou/uL (1.40-6.50); %Eosinophils 1.4 % (0.0-10.0); %Lymphocytes 10.3 % (21.0-51.0); %Monocytes 7.5 % (0.0-10.0); %Neutrophils 80.7 % (42.0-75.0); Hemoglobin 8.9 g/dL (14.0-18.0); Mean Corpuscular HGB CONC 32.5 g/dL (32.0-36.0); Mean Corpuscular Hemoglobin 30.5 pg (27.0-31.0); Mean Platelet Volume 7.8 fL (7.4-10.4); Platelet Count 325 thou/uL (130-400); RBC Distribution Width 12.4 % (11.5-14.5); Red Blood Cell (RBC) Count 2.93 mill/uL (4.70-6.10); White Blood Cell (WBC) Count 11.4 thou/uL (4.8-10.8)
[2022-06-01] MEDS: Meropenem 500 MG in Sodium Chloride 0.9% 100 ML IVPB SCH (05:50)
[2022-06-01 07:51] LABS: Actual Bicarbonate (HCO3a) 28.2 mEq/L (22-28); Base Excess (BEa) 4.1 mEq/L (-2.0 to +3.0); CO2 Tension 40.2 mmHg (35.0-45.0); Calcium, Ionized (arterial) 1.05 mmol/L (1.12-1.30); Carboxyhemoglobin (COHb) 0.3 gm% (0.0-3.0); Hemoglobin (Hb) 10.3 g/dL (14.0-18.0); O2 Tension (PaO2), arterial 97.8 mmHg (> 80.0); pH, Arterial 7.46 (7.35-7.45)
[2022-06-01 08:08] LABS: Puncture Site LRA
[2022-06-01 08:44] LABS: Iron 18 ug/dL (65-175); Iron Binding Capacity, Total 94 mcg/dL (261-462)
[2022-06-01 09:03] LABS: Ferritin 490.94 ng/mL (22-322)
[2022-06-01 09:04] LABS: Vitamin D, 25 Hydroxy 10.2 ng/ml (> 30.0)
[2022-06-01] MEDS: levETIRAcetam 500 MG/5 ML VIAL SLOW IVP SCH ×2 (09:36→21:59)
[2022-06-01] MEDS: Heparin 5,000 UNITS/ML VIAL SC SCH ×2 (09:37→21:59)
[2022-06-01] MEDS: Pantoprazole 40 MG VIAL IVP SCH (09:37)
[2022-06-01] MEDS: Polyethylene Glycol 3350 17 GM Packet PER TUBE SCH (09:37)
[2022-06-01] MEDS: Aspirin 325 MG TAB PO SCH (09:38)
[2022-06-01] MEDS: Carvedilol 3.125 MG TAB PO SCH ×2 (09:38→16:44)
[2022-06-01] MEDS: Senokot S 8.6-50 MG TAB PO SCH ×2 (09:38→21:50)
[2022-06-01 09:48] LABS: Albumin 3.5 g/dL (3.4-4.8); Anion Gap 19 mmol/L (10-20); BUN (Urea Nitrogen) 64 mg/dL (8.4-25.7); BUN/Creatinine Ratio 14.81; Calc. Creatinine Clearance 18 mL/min (70-130); Calcium 8.7 mg/dL (7.8-10.44); Carbon Dioxide 25 mmol/L (23-31); Chloride 97 mmol/L (98-107); Estimated GFR 15; Glucose 134 mg/dL (80-115); Phosphorus 4.6 mg/dL (2.3-4.7); Potassium 4.2 mmol/L (3.5-5.1); Sodium 137 mmol/L (136-145)
[2022-06-01] MEDS ORDERED: Heparin 10,000 UNITS/ 10 ML VIAL ONE (09:54)
[2022-06-01] MEDS: Insulin Glargine 30 UNITS/0.3 ML VIAL SC SCH (21:59)
[2022-06-02 04:23] LABS: #Eosinphils 0.3 thou/uL (0.0-0.7); #Lymphocytes 1.3 thou/uL (1.20-3.40); #Neutrophils 11.8 thou/uL (1.40-6.50); %Basophils 0.1 % (0.0-1.0); %Eosinophils 1.9 % (0.0-10.0); %Lymphocytes 8.9 % (21.0-51.0); %Monocytes 6.8 % (0.0-10.0); %Neutrophils 82.3 % (42.0-75.0); Hemoglobin 9.8 g/dL (14.0-18.0); Mean Corpuscular HGB CONC 32.3 g/dL (32.0-36.0); Mean Corpuscular Hemoglobin 30.1 pg (27.0-31.0); Mean Corpuscular Volume 93.2 fL (78.0-98.0); Mean Platelet Volume 7.7 fL (7.4-10.4); Platelet Count 435 thou/uL (130-400); RBC Distribution Width 12.4 % (11.5-14.5); Red Blood Cell (RBC) Count 3.25 mill/uL (4.70-6.10); White Blood Cell (WBC) Count 14.3 thou/uL (4.8-10.8)
[2022-06-02 04:45] LABS: ALT (SGPT) 57 U/L (8-55); AST (SGOT) 105 U/L (5-34); Albumin 3.3 g/dL (3.4-4.8); Alkaline Phosphatase 92 U/L (40-110); Anion Gap 17 mmol/L (10-20); BUN (Urea Nitrogen) 52 mg/dL (8.4-25.7); Bilirubin, Total 0.4 mg/dL (0.2-1.2); CK (CPK) 3000 U/L (30-200); Calc. Creatinine Clearance 20 mL/min (70-130); Calcium 8.5 mg/dL (7.8-10.44); Carbon Dioxide 26 mmol/L (23-31); Chloride 97 mmol/L (98-107); Estimated GFR 17; Globulin 2.5 g/dL (2.4-3.5); Glucose 123 mg/dL (80-115); Phosphorus 3.8 mg/dL (2.3-4.7); Potassium 3.8 mmol/L (3.5-5.1); Protein, Total 5.8 g/dL (5.8-8.1); Sodium 136 mmol/L (136-145)
[2022-06-02] MEDS: Meropenem 500 MG in Sodium Chloride 0.9% 100 ML IVPB SCH (06:29)
[2022-06-02] MEDS: Polyethylene Glycol 3350 17 GM Packet PER TUBE SCH (08:18)
[2022-06-02] MEDS: Senokot S 8.6-50 MG TAB PO SCH (08:19)
[2022-06-02 09:38] LABS: Hep C PCR-Quant HCV Not Detected IU/mL (.)
[2022-06-02] MEDS: levETIRAcetam 500 MG/5 ML VIAL SLOW IVP SCH ×2 (09:53→22:43)
[2022-06-02] MEDS: Heparin 5,000 UNITS/ML VIAL SC SCH ×2 (09:53→22:43)
[2022-06-02] MEDS: Carvedilol 3.125 MG TAB PO SCH ×2 (09:54→17:22)
[2022-06-02] MEDS: Aspirin 325 MG TAB PO SCH (09:54)
[2022-06-02] MEDS: Pantoprazole 40 MG VIAL IVP SCH (09:54)
[2022-06-02] MEDS ORDERED: Heparin 10,000 UNITS/ 10 ML VIAL ONE (09:55)
[2022-06-02] MEDS ORDERED: Senokot S 8.6-50 MG TAB PO PRN (12:38)
[2022-06-02] MEDS ORDERED: Polyethylene Glycol 3350 17 GM Packet PER TUBE PRN (12:38)
[2022-06-02] MEDS: Insulin Glargine 30 UNITS/0.3 ML VIAL SC SCH (22:43)
[2022-06-03 04:41] LABS: #Eosinphils 0.4 thou/uL (0.0-0.7); #Monocytes 0.9 thou/uL (0.11-0.59); #Neutrophils 9.4 thou/uL (1.40-6.50); %Basophils 0.1 % (0.0-1.0); %Eosinophils 3.2 % (0.0-10.0); %Lymphocytes 8.5 % (21.0-51.0); %Monocytes 7.5 % (0.0-10.0); %Neutrophils 80.8 % (42.0-75.0); Hemoglobin 10.6 g/dL (14.0-18.0); Mean Corpuscular Hemoglobin 30.7 pg (27.0-31.0); Mean Platelet Volume 7.3 fL (7.4-10.4); Platelet Count 452 thou/uL (130-400); RBC Distribution Width 12.4 % (11.5-14.5); Red Blood Cell (RBC) Count 3.46 mill/uL (4.70-6.10); White Blood Cell (WBC) Count 11.6 thou/uL (4.8-10.8)
[2022-06-03 05:08] LABS: ALT (SGPT) 70 U/L (8-55); AST (SGOT) 104 U/L (5-34); Albumin 3.1 g/dL (3.4-4.8); Alkaline Phosphatase 95 U/L (40-110); Anion Gap 14 mmol/L (10-20); BUN (Urea Nitrogen) 47 mg/dL (8.4-25.7); BUN/Creatinine Ratio 13.62; Bilirubin, Total 0.3 mg/dL (0.2-1.2); CK (CPK) 2266 U/L (30-200); Calc. Creatinine Clearance 21 mL/min (70-130); Calcium 8.5 mg/dL (7.8-10.44); Carbon Dioxide 28 mmol/L (23-31); Chloride 98 mmol/L (98-107); Estimated GFR 19; Globulin 2.8 g/dL (2.4-3.5); Glucose 133 mg/dL (80-115); Potassium 3.7 mmol/L (3.5-5.1); Protein, Total 5.9 g/dL (5.8-8.1); Sodium 136 mmol/L (136-145)
[2022-06-03] MEDS: Meropenem 500 MG in Sodium Chloride 0.9% 100 ML IVPB SCH (05:55)
[2022-06-03 07:39] LABS: Actual Bicarbonate (HCO3a) 25.2 mEq/L (22-28); Base Excess (BEa) 2.6 mEq/L (-2.0 to +3.0); CO2 Tension 31.8 mmHg (35.0-45.0); Calcium, Ionized (arterial) 1.08 mmol/L (1.12-1.30); Carboxyhemoglobin (COHb) 0.3 gm% (0.0-3.0); Hemoglobin (Hb) 10.6 g/dL (14.0-18.0); O2 Tension (PaO2), arterial 122.8 mmHg (> 80.0); Potassium - ABG Lab 3.64 mmol/L (3.70-5.30); pH, Arterial 7.52 (7.35-7.45)
[2022-06-03 07:41] LABS: Puncture Site RRA
[2022-06-03] MEDS: Heparin 5,000 UNITS/ML VIAL SC SCH ×2 (08:36→22:32)
[2022-06-03] MEDS: Pantoprazole 40 MG VIAL IVP SCH (08:37)
[2022-06-03] MEDS: Aspirin 325 MG TAB PO SCH (08:37)
[2022-06-03] MEDS: levETIRAcetam 500 MG/5 ML VIAL SLOW IVP SCH ×2 (08:37→22:33)
[2022-06-03] MEDS: Carvedilol 25 MG TAB PO SCH ×2 (08:38→16:51)
[2022-06-03] MEDS ORDERED: Heparin 10,000 UNITS/ 10 ML VIAL ONE (08:48)
[2022-06-03 11:45] VITALS: BMI 23.4
[2022-06-03] MEDS: Insulin Regular 300 UNITS/3 ML VIAL SC PRN (17:00)
[2022-06-03] MEDS: Insulin Glargine 30 UNITS/0.3 ML VIAL SC SCH (22:31)
[2022-06-04 04:21] LABS: #Eosinphils 0.4 thou/uL (0.0-0.7); #Monocytes 1.1 thou/uL (0.11-0.59); #Neutrophils 9.1 thou/uL (1.40-6.50); %Basophils 0.2 % (0.0-1.0); %Eosinophils 3.4 % (0.0-10.0); %Lymphocytes 8.2 % (21.0-51.0); %Monocytes 9.6 % (0.0-10.0); %Neutrophils 78.6 % (42.0-75.0); Hemoglobin 9.9 g/dL (14.0-18.0); Mean Corpuscular HGB CONC 33.1 g/dL (32.0-36.0); Mean Corpuscular Hemoglobin 30.8 pg (27.0-31.0); Mean Corpuscular Volume 93.3 fL (78.0-98.0); Platelet Count 454 thou/uL (130-400); RBC Distribution Width 12.4 % (11.5-14.5); White Blood Cell (WBC) Count 11.6 thou/uL (4.8-10.8)
[2022-06-04 04:48] LABS: ALT (SGPT) 87 U/L (8-55); AST (SGOT) 101 U/L (5-34); Albumin 2.9 g/dL (3.4-4.8); Alkaline Phosphatase 102 U/L (40-110); Anion Gap 16 mmol/L (10-20); BUN (Urea Nitrogen) 42 mg/dL (8.4-25.7); BUN/Creatinine Ratio 13.95; Bilirubin, Total 0.3 mg/dL (0.2-1.2); CK (CPK) 2039 U/L (30-200); Calc. Creatinine Clearance 24 mL/min (70-130); Calcium 8.6 mg/dL (7.8-10.44); Carbon Dioxide 26 mmol/L (23-31); Chloride 99 mmol/L (98-107); Estimated GFR 23; Glucose 139 mg/dL (80-115); Phosphorus 3.8 mg/dL (2.3-4.7); Potassium 3.7 mmol/L (3.5-5.1); Protein, Total 5.9 g/dL (5.8-8.1); Sodium 137 mmol/L (136-145)
[2022-06-04 08:09] LABS: Actual Bicarbonate (HCO3a) 26.5 mEq/L (22-28); Base Excess (BEa) 3.7 mEq/L (-2.0 to +3.0); CO2 Tension 33.7 mmHg (35.0-45.0); Calcium, Ionized (arterial) 1.09 mmol/L (1.12-1.30); Carboxyhemoglobin (COHb) 0.3 gm% (0.0-3.0); Hemoglobin (Hb) 10.7 g/dL (14.0-18.0); O2 Tension (PaO2), arterial 110.1 mmHg (> 80.0); Potassium - ABG Lab 3.78 mmol/L (3.70-5.30); pH, Arterial 7.51 (7.35-7.45)
[2022-06-04 08:16] LABS: Puncture Site LRA
[2022-06-04 08:17] LABS: ALV-art Gradient 132.975 mmHg (0-20)
[2022-06-04] MEDS: Pantoprazole 40 MG VIAL IVP SCH (08:38)
[2022-06-04] MEDS: Carvedilol 25 MG TAB PO SCH (08:38)
[2022-06-04] MEDS: Aspirin 325 MG TAB PO SCH (08:38)
[2022-06-04] MEDS: Heparin 5,000 UNITS/ML VIAL SC SCH (08:38)
[2022-06-04] MEDS: levETIRAcetam 500 MG/5 ML VIAL SLOW IVP SCH (08:38)
[2022-06-04] MEDS ORDERED: Cholecalciferol 10 MCG/ML (Vitamin D3) 50 ML BOT PO SCH (09:00)
[2022-06-04] MEDS ORDERED: Cholecalciferol 1,000 UNITS (25 MCG) TAB PO SCH (09:00)
[2022-06-04] MEDS ORDERED: hydrALAZINE 25 MG TAB PO SCH (09:00)
[2022-06-04] MEDS ORDERED: Midazolam HCl 2 mg/2 ml Vial SLOW IVP PRN (10:37)
[2022-06-04] MEDS ORDERED: Scopolamine 1.5 mg/72 hour Patch TD SCH ×3 (10:45→11:30)
[2022-06-04] MEDS: Midazolam HCl 2 mg/2 ml Vial SLOW IVP PRN ×2 (11:39→13:50)
[2022-06-04] MEDS ORDERED: Morphine 4 MG/ML VIAL ONE (11:45)
[2022-06-04] MEDS ORDERED: Morphine 4 MG/ML VIAL SLOW IVP SCH (12:00)
[2022-06-04] MEDS: Morphine 4 MG/ML VIAL SLOW IVP PRN (13:49)
[2022-06-05] MEDS: Morphine 4 MG/ML VIAL SLOW IVP PRN (20:45)
[2022-06-05] MEDS: Midazolam HCl 2 mg/2 ml Vial SLOW IVP PRN (20:57)
[2022-06-06 08:54] VITALS: BP 139/70; TEMP 97.6
[2022-06-06] MEDS: Morphine 4 MG/ML VIAL SLOW IVP PRN ×2 (09:21→10:27)
[2022-06-06] MEDS: Midazolam HCl 2 mg/2 ml Vial SLOW IVP PRN (09:50)
== END 2022-06-06 14:43 | disposition hospice, inpatient (51) | DRG 870 ==
LOC: ERS 12:25 → CCU 14:53 → MSONC 06-04 17:46
PROVIDERS: ADMIT Student in an Organized Health Care Education/Training Program; ATTEND Internal Medicine
PROC: 5A1955Z Respiratory Ventilation, Greater than 96 Consecutive Hours (ICD-10-PCS; principal; 2022-05-22)
PROC: 0BH17EZ Insertion of Endotracheal Airway into Trachea, Via Natural or Artificial Opening (ICD-10-PCS; 2022-05-22)
PROC: 0D9670Z Drainage of Stomach with Drainage Device, Via Natural or Artificial Opening (ICD-10-PCS; 2022-05-22)
PROC: 3E033XZ Introduction of Vasopressor into Peripheral Vein, Percutaneous Approach (ICD-10-PCS; 2022-05-22)
PROC: 3E03329 Introduction of Other Anti-infective into Peripheral Vein, Percutaneous Approach (ICD-10-PCS; 2022-05-22)
PROC: 06HY33Z Insertion of Infusion Device into Lower Vein, Percutaneous Approach (ICD-10-PCS; 2022-05-30)
PROC: 5A1D70Z Performance of Urinary Filtration, Intermittent, Less than 6 Hours Per Day (ICD-10-PCS; 2022-05-30)
PROC: 30233J1 Transfusion of Nonautologous Serum Albumin into Peripheral Vein, Percutaneous Approach (ICD-10-PCS; 2022-05-30)
DX: A41.9 Sepsis, unspecified organism (principal); J18.9 Pneumonia, unspecified organism; J69.0 Pneumonitis due to inhalation of food and vomit; I21.A1 Myocardial infarction type 2; J96.01 Acute respiratory failure with hypoxia; G93.41 Metabolic encephalopathy; G93.6 Cerebral edema; I63.89 Other cerebral infarction; N18.6 End stage renal disease; N17.0 Acute kidney failure with tubular necrosis; I69.351 Hemiplegia and hemiparesis following cerebral infarction affecting right dominant side; E87.2 Acidosis; I42.9 Cardiomyopathy, unspecified; I48.92 Unspecified atrial flutter; M62.82 Rhabdomyolysis; R64 Cachexia; I13.2 Hypertensive heart and chronic kidney disease with heart failure and with stage 5 chronic kidney disease, or end stage renal disease; G93.1 Anoxic brain damage, not elsewhere classified; J98.11 Atelectasis; I50.32 Chronic diastolic (congestive) heart failure; Z66 Do not resuscitate; Z51.5 Encounter for palliative care; Z20.822 Contact with and (suspected) exposure to COVID-19; R65.20 Severe sepsis without septic shock; F03.90 Unspecified dementia, unspecified severity, without behavioral disturbance, psychotic disturbance, mood disturbance, and anxiety; E87.6 Hypokalemia; B18.2 Chronic viral hepatitis C; I73.9 Peripheral vascular disease, unspecified; G93.89 Other specified disorders of brain; D63.1 Anemia in chronic kidney disease; F10.10 Alcohol abuse, uncomplicated; E88.09 Other disorders of plasma-protein metabolism, not elsewhere classified; E55.9 Vitamin D deficiency, unspecified; I65.23 Occlusion and stenosis of bilateral carotid arteries; E87.5 Hyperkalemia; Z78.1 Physical restraint status; Z90.09 Acquired absence of other part of head and neck; Z87.891 Personal history of nicotine dependence; Z88.0 Allergy status to penicillin; Z86.16 Personal history of COVID-19; I69.320 Aphasia following cerebral infarction; Z79.82 Long term (current) use of aspirin; Z79.899 Other long term (current) drug therapy; Z98.890 Other specified postprocedural states; Z68.20 Body mass index [BMI] 20.0-20.9, adult; G40.401 Other generalized epilepsy and epileptic syndromes, not intractable, with status epilepticus; T46.4X5A Adverse effect of angiotensin-converting-enzyme inhibitors, initial encounter; T50.3X5A Adverse effect of electrolytic, caloric and water-balance agents, initial encounter; R13.10 Dysphagia, unspecified; E86.9 Volume depletion, unspecified; Z95.828 Presence of other vascular implants and grafts
CPT/HCPCS: 31500; 36415; 36416; 36600; 51702; 70450; 70551; 71045; 76770; 80048; 80053; 80061; 80069; 80185; 80202; 80306; 80307; 81001; 81003; 81015; 82140; 82306; 82550; 82553; 82570; 82728; 82805; 83036; 83540; 83550; 83605; 83735; 83880; 84145; 84156; 84300; 84443; 84484; 84540; 85025; 86704; 87040; 87070; 87077; 87081; 87086; 87149; 87186; 87205; 87340; 87449; 87522; 87811; 87899; 89220; 90935; 93005; 93306; 94002; 94003; 94660; 95712; 95819; 95957; 96361; 96365; 96374; 96375; 99292; C9113; G0257; J0171; J0692; J1642; J1644; J1815; J1940; J1953; J1956; J2185; J2250; J2270; J3010; J3370; J3475; J3480; J3490; J7030; J7050; J7070; J7120; J7131; J7999; P9047; Q2009; U0002

== ENCOUNTER 2022-06-06 14:48 | Inpatient (IN) | payer OTHER ==
[2022-06-06] MEDS ORDERED: Midazolam HCl 2 mg/2 ml Vial SLOW IVP PRN (14:59)
[2022-06-06] MEDS ORDERED: diphenhydrAMINE 50 MG/ML VIAL IVP PRN (15:02)
[2022-06-06] MEDS ORDERED: Haloperidol Lactate 5 MG/ML VIAL SLOW IVP PRN (15:03)
[2022-06-06] MEDS ORDERED: Bisacodyl 10 MG SUPP PR PRN (15:08)
[2022-06-06] MEDS ORDERED: Ondansetron PF 4 MG/2 ML Vial IVP PRN (15:08)
[2022-06-06] MEDS ORDERED: Acetaminophen 650 MG Suppository PR PRN (15:14)
[2022-06-06] MEDS: Morphine 4 MG/ML VIAL SLOW IVP PRN ×2 (16:13→18:00)
[2022-06-06 17:48] VITALS: TEMP 100.3
[2022-06-06] MEDS ORDERED: Scopolamine 1.5 mg/72 hour Patch TOP SCH (18:15)
[2022-06-06] MEDS ORDERED: Morphine 4 MG/ML VIAL SLOW IVP SCH (18:15)
[2022-06-07] MEDS ORDERED: Scopolamine 1.5 mg/72 hour Patch TOP SCH (09:00)
== END 2022-06-06 19:07 | disposition expired | DRG 951 ==
LOC: MSONC 14:48
PROVIDERS: ADMIT Internal Medicine; ATTEND Internal Medicine
DX: Z51.5 Encounter for palliative care (principal); A41.9 Sepsis, unspecified organism; J69.0 Pneumonitis due to inhalation of food and vomit; I63.9 Cerebral infarction, unspecified; G40.909 Epilepsy, unspecified, not intractable, without status epilepticus; I50.9 Heart failure, unspecified; N19 Unspecified kidney failure; Z66 Do not resuscitate; Z88.0 Allergy status to penicillin
CPT/HCPCS: J1200; J2250; J2270